=== PATIENT | male | born 1985 | race Two or more races ===

== ENCOUNTER 2020-04-10 01:02 | Emergency (ER) | payer OTHER ==
[~2020-04-10] VITALS: Ht 180.3 cm; Wt 83.9 kg
--- NOTE | 2020-04-10 01:15 | NUR ---
bibself [id number] from home c/o left ankle pain s/p missed a step walking down stairs. pt denies ko. pt aox4 rr even and unlabored. no sob noted. no nvd at this time. no acute distress noted. dr. waddell at bedside for eval.
--- NOTE | 2020-04-10 01:21 | NUR ---
radiology at bedside for left ankle xr
[2020-04-10] MEDS ORDERED: IBUPROFEN 400 MG TABLET ONE (01:22)
[2020-04-10] MEDS ORDERED: IBUPROFEN 400 MG TABLET PO ONE (01:30)
--- NOTE | 2020-04-10 01:53 | NUR ---
Dr. Persaud at bedside speaking to pt regarding results. plan of care.
[2020-04-10] MEDS ORDERED: HYDROCODONE/APAP 5/325MG TABLET PO ONE ×2 (02:00)
[2020-04-10] MEDS ORDERED: HYDROCODONE/APAP 5/325MG TABLET ONE (02:05)
[2020-04-10 02:13] VITALS: BP 140/70
--- NOTE | 2020-04-10 02:20 | NUR ---
pt cleared for discharge per dr. waddell. pt received discharge instructions. pt verbalized understanding. pt ambulatory with crutches, pt verbalized understanding and provided return demonstrtion using crutches and proper care for cast.
== END 2020-04-10 02:13 | disposition home or self-care (01) ==
LOC: ER 01:06
DX: S82.52XA Displaced fracture of medial malleolus of left tibia, initial encounter for closed fracture (principal); W10.8XXA Fall (on) (from) other stairs and steps, initial encounter; Y93.89 Activity, other specified; Y92.89 Other specified places as the place of occurrence of the external cause; Y99.8 Other external cause status
CPT/HCPCS: 73610-TC